=== PATIENT | female | born 1975 | race Asian ===

== ENCOUNTER 2019-05-22 08:25 | Day surgery (SDC) | payer MEDICAID ==
[2019-05-20 11:39] LABS: BASOPHILS % (AUTO) 0.3 % (0-1); EOSINOPHILS # (AUTO) 0.2 X10'3 (0-0.9); EOSINOPHILS % (AUTO) 2.3 % (0-6); LYMPHOCYTES % (AUTO) 24.5 % (21-51); MEAN CORPUSCULAR HEMOGLOBIN 30.3 PG (27.0-31.0); MEAN CORPUSCULAR VOLUME 89.2 FL (78-98); MONOCYTES # (AUTO) 0.5 X10'3 (0-0.9); MONOCYTES % (AUTO) 6.7 % (2-12); NEUTROPHILS # (AUTO) 5.4 X10'3 (1.8-7.7); NEUTROPHILS % (AUTO) 66.2 % (42-75); PRE OP HEMATOCRIT 39.8 % (35.0-45.0); PRE OP HEMOGLOBIN 13.5 g/dL (12.0-16.0); PRE OP PLATELET COUNT 217 X10'3 (140-440); RED BLOOD COUNT 4.47 X10'6 (4.20-5.60); RED CELL DISTRIBUTION WIDTH 13.1 % (11.5-14.5)
[2019-05-20 11:51] LABS: CLARITY,URINE CLEAR (Clear); COLOR,URINE YELLOW (Yellow); GLUCOSE, URINE NEGATIVE (Neg); KETONES,URINE NEGATIVE (Neg); LEUKOCYTE ESTERASE ,URINE NEGATIVE (Neg); NITRITES, URINE NEGATIVE (Neg); OCCULT BLOOD,URINE NEGATIVE (Neg); PH,URINE 5.5 (4.8-8.0); PROTEIN,URINE NEGATIVE (Neg); UROBILINOGEN,URINE 0.2 E.U/dL (0.2-1.0)
[2019-05-20 11:52] LABS: PRE OP INR 0.9 INR; PRE OP PROTIME 9.8 SECONDS (9.0-12.0)
[2019-05-20 11:53] LABS: UA COLLECTION TYPE CLN CATCH MIDSTREAM
[2019-05-20 11:54] LABS: ALBUMIN 3.7 G/DL (3.4-5.0); ALBUMIN/GLOBULIN RATIO 0.9 (1.1-1.5); ALKALINE PHOSPHATASE 76 IU/L (46-116); BLOOD UREA NITROGEN 14 MG/DL (7-18); BUN/CREATININE RATIO 22.6 (6.6-38.0); CALCIUM 8.5 MG/DL (8.5-10.1); CHLORIDE 105 MMOL/L (99-107); CREATININE 0.62 MG/DL (0.40-0.90); PRE OP ALT 52 U/L (30-65); PRE OP ANION GAP 5 (8-16); PRE OP AST 28 U/L (10-37); PRE OP BILIRUB, TOTAL 0.3 MG/DL (0.0-1.0); PRE OP GLUCOSE 91 MG/DL (70-104); PRE OP POTASSIUM 4.1 MMOL/L (3.4-5.1); PRE OP SODIUM 139 MMOL/L (135-145); TOTAL CARBON DIOXIDE 28.7 MMOL/L (24-32); TOTAL PROTEIN 7.7 G/DL (6.4-8.2); eGFR > 90 ML/MIN
[2019-05-20 12:05] LABS: HCG SERUM QL NEGATIVE
[~2019-05-22] VITALS: Ht 144.8 cm; Wt 70.3 kg
[2019-05-22] VITALS (11 sets, daily range): BP systolic 97–125; BP diastolic 65–79
[~2019-05-22 08:25] MED LIST: NO HOME MEDS; ceFOXitin 2 GM ADDvantage bag 100 ML IV ONE; famotidine 10mg tablet PO ONE; ringers solution, lacted 1,000 ML IV SCH
[2019-05-22] MEDS ORDERED: midazolam 2 mg/2 ml injection ONE (09:46)
[2019-05-22] MEDS ORDERED: fentaNYL/PF 50MCG/1 ML 2ML syringe ONE (09:46)
[2019-05-22] MEDS ORDERED: ondansetron/PF 4mg/2ml inj ONE (09:47)
[2019-05-22] MEDS ORDERED: rocuronium 10mg/ml inj IV ONE (09:47)
[2019-05-22] MEDS ORDERED: propofol inj 20 ML IV ONE (09:47)
[2019-05-22] MEDS ORDERED: LIDOcaine 2% (20mg/ml) 5ml vial ONE (09:47)
[2019-05-22] MEDS ORDERED: ringers solution, lacted 1,000 ML IV SCH (09:51)
[2019-05-22] MEDS ORDERED: BUPIVAcaine/PF 2.5mg/ml (0.25%) 10ml vial ONE ×2 (09:51→10:51)
[2019-05-22] MEDS ORDERED: morphine 4 MG/ML inj SYRINge IV PRN ×2 (09:55)
[2019-05-22] MEDS ORDERED: hydrALAZINE 20mg/ml inj. IV PRN (09:55)
[2019-05-22] MEDS ORDERED: ondansetron/PF 4mg/2ml inj IV PRN (09:55)
[2019-05-22] MEDS ORDERED: labetalol 20mg/4ml (5mg/ml) syringe IV PRN (09:55)
[2019-05-22] MEDS ORDERED: fentaNYL/PF 50MCG/1 ML 2ML syringe IV PRN ×2 (09:55)
[2019-05-22] MEDS ORDERED: neostigmine methylsulfate 1 MG/ML 10ml vial ONE (10:09)
[2019-05-22] MEDS ORDERED: dexamethasone sod phosphate 10mg/ml inj ONE (10:09)
[2019-05-22] MEDS ORDERED: sevoflurane 250ml liquid IH ONE (10:09)
[2019-05-22] MEDS ORDERED: glycopyrrolate 0.2mg/ml inj ONE (10:42)
[2019-05-22] MEDS ORDERED: labetalol 20mg/4ml (5mg/ml) syringe IV ONE (10:51)
--- NOTE | 2019-05-22 11:23 | NUR ---
Received from OR via , accompanied by Anesthesiologist REBECCA and report given by Anesthesiolgist. ASLEEP ORAL AIRWAY IN, DEEP RESP. NO CO PAIN ABD SOFT DSG DI,
--- NOTE | 2019-05-22 11:30 | NUR ---
MORE AWAKE ORAL AIRWAY OUT SPONT DEEP RESP NO CO PAIN
[2019-05-22] MEDS ORDERED: HYDROcodone/acetaminophen 5mg/325mg tablet PO ONE (12:35)
--- NOTE | 2019-05-22 13:13 | NUR ---
AWAKE VS WNL, PAIN DECREASED AFTER MED, ABD SOFT DSG DI, PERIPAD WITH SCANT SSD. DISCH INSTR GIVEN TO PT AND UNDERSTOOD, SCRIPT GIVEN TO PT. HOME WITH
== END 2019-05-22 13:13 | disposition home or self-care (01) ==
LOC: PAS 08:25
PROVIDERS: ATTEND Obstetrics & Gynecology
DX: Z30.2 Encounter for sterilization (principal); E66.9 Obesity, unspecified; Z68.33 Body mass index [BMI] 33.0-33.9, adult; Z86.32 Personal history of gestational diabetes; Z79.01 Long term (current) use of anticoagulants; Z79.899 Other long term (current) drug therapy
CPT/HCPCS: 36415; 58670; 80053; 81003; 82948; 84703; 85025; 85610; 85730; 86885; 86900; 86901; J0694; J1100; J2001; J2250; J2405; J2704; J2710; J3010; J3490; A4618; J7120

== ENCOUNTER 2025-02-10 06:19 | Outpatient (CLI) | payer MEDICAID ==
[~2025-02-10 06:19] MED LIST changes: -ceFOXitin 2 GM ADDvantage bag 100 ML IV ONE; -famotidine 10mg tablet PO ONE; -ringers solution, lacted 1,000 ML IV SCH
[2025-02-10] MEDS ORDERED: GADOTERATE MEGLUMINE 7.5 MMOL/15 ML VIAL IV ONE (06:33)
[2025-02-10] MEDS ORDERED: LIDOcaine 1% 30ml preserv. free vial ONE (06:33)
[2025-02-10] MEDS ORDERED: LIDOcaine 1%/PF 5ML 10 MG/ML VIAL ONE (06:33)
[2025-02-10] MEDS ORDERED: iohexol 300 MG/1 ML 50ml polymer ONE (06:33)
--- NOTE | 2025-02-10 08:22 | RADIOLOGY REPORT ---
C-ARM FLUOROSCOPY: PROCEDURE: Right shoulder MRI arthrogram FLUOROSCOPY TIME: 0.1 Air Kerma: 1 mgy FINDINGS: Spot intraoperative C arm radiographs demonstrating right shoulder MRI arthrogram injection. IMPRESSION: Please refer to surgical report for detailed findings.
--- NOTE | 2025-02-10 09:11 | RADIOLOGY REPORT ---
CLINICAL INFORMATION: Right shoulder pain. TECHNIQUE: Multisequence multiplanar MR arthrogram images of the right shoulder were obtained after the uneventful intra-articular injection of a dilute gadolinium contrast mixture under fluoroscopic guidance. COMPARISON: Correlation made to same day arthrogram injection images. FINDINGS: Acromioclavicular joint: There is mild acromioclavicular hypertrophy and minimal edema. There is Type 2 acromion. Small amount of fluid in the subacromial / subdeltoid bursa. There is also contrast extending from the glenohumeral joint into the subacromial/subdeltoid bursa. Rotator cuff tendons: Tear of the supraspinatus tendon from its insertional footprint, with full-thickness and near full-thickness bursal surface components of the tear measuring up to 1.5 cm in AP dimension with retraction of torn tendon fibers up to 1 cm in proximal to distal dimension. There are some articular surface fibers remaining intact in portions of the tear, although full-thickness communication demonstrated, with contrast extending from the glenohumeral joint into the subacromial / subdeltoid bursa. Mild tendinosis of the distal infraspinatus tendon without visualized tear. Articular surface fraying and small partial-thickness articular surface tear involving the cephalad fibers of the distal supraspinatus tendon near its insertion. Teres minor tendon is intact. Biceps tendon: No significant tendinosis. No evidence of attrition or tear. Labrum: No labral tear identified. Bones: No fracture or focal marrow contusion. Muscles: Mild fatty changes in the supraspinatus muscle. Other: No other significant findings. IMPRESSION: 1. Tear of the supraspinatus tendon from its insertional footprint with full- thickness and near full-thickness bursal surface components of the tear. 2. Articular surface fraying and small partial-thickness articular surface tear involving the cephalad fibers of the subscapularis tendon near its insertion. 3. Mild acromioclavicular hypertrophy. 4. Additional findings as detailed above.
== END 2025-02-10 23:59 | disposition home or self-care (01) ==
LOC: MRI 06:19
PROVIDERS: ATTEND Family Medicine
DX: M25.511 Pain in right shoulder (principal); M19.011 Primary osteoarthritis, right shoulder; M75.121 Complete rotator cuff tear or rupture of right shoulder, not specified as traumatic; F41.9 Anxiety disorder, unspecified; F32.A Depression, unspecified; Z79.899 Other long term (current) drug therapy; Z90.89 Acquired absence of other organs; Z98.891 History of uterine scar from previous surgery; Z98.890 Other specified postprocedural states; Z88.8 Allergy status to other drugs, medicaments and biological substances
CPT/HCPCS: 23350; 73222; 77002; A9575; J2003; J3490; Q9967